=== PATIENT | female | born 1945 | race Caucasian/White ===

== ENCOUNTER 2017-03-27 02:52 | Outpatient (CLI) | payer MEDICARE, MEDICAID ==
[~2017-03-27 02:52] MED LIST: ASPI1CPM9 PO; AZIT250T PO; CLIN-80 PO; DET2LAC PO; LEVO50TA67 PO; NIFE60TA64 PO; ONDA4TAB6 PO; ONDA8TAB6 PO; PARO40TA45 PO; PREG100C24 PO; RANI300C7 PO; SIMV80TA2 PO
== END 2017-03-27 23:59 | disposition home or self-care (01) ==
LOC: DIABETIC 02:52
PROVIDERS: ATTEND Family Medicine
DX: E11.65 Type 2 diabetes mellitus with hyperglycemia (principal); F17.200 Nicotine dependence, unspecified, uncomplicated
CPT/HCPCS: G0108

== ENCOUNTER 2017-10-04 04:07 | Outpatient (CLI) | payer MEDICARE, MEDICAID ==
[~2017-10-04 04:07] MED LIST changes: -CLIN-80 PO; +CLIN300C85 PO
== END 2017-10-04 23:59 | disposition home or self-care (01) ==
LOC: DIABETIC 04:07
PROVIDERS: ATTEND Family Medicine
DX: E11.65 Type 2 diabetes mellitus with hyperglycemia (principal); Z79.899 Other long term (current) drug therapy
CPT/HCPCS: G0108

== ENCOUNTER 2018-01-09 00:57 | Outpatient (CLI) | payer MEDICARE, MEDICAID | END 2018-01-09 23:59 | disposition home or self-care (01) | LOC: DIABETIC 00:57 | PROVIDERS: ATTEND Family Medicine | DX: E11.65 Type 2 diabetes mellitus with hyperglycemia (principal) | CPT/HCPCS: G0108 ==

== ENCOUNTER 2018-07-10 04:24 | Outpatient (CLI) | payer MEDICARE, MEDICAID ==
[~2018-07-10 04:24] MED LIST changes: +CLIN-96 PO; -CLIN300C85 PO
== END 2018-07-10 23:59 | disposition home or self-care (01) ==
LOC: DIABETIC 04:24
PROVIDERS: ATTEND Family Medicine
DX: E11.65 Type 2 diabetes mellitus with hyperglycemia (principal); I50.9 Heart failure, unspecified; Z88.0 Allergy status to penicillin; Z88.2 Allergy status to sulfonamides; Z88.5 Allergy status to narcotic agent; Z91.041 Radiographic dye allergy status
CPT/HCPCS: G0108

== ENCOUNTER 2018-10-16 00:46 | Outpatient (CLI) | payer MEDICARE, MEDICAID | END 2018-10-16 23:59 | disposition home or self-care (01) | LOC: DIABETIC 00:46 | PROVIDERS: ATTEND Family Medicine | DX: E11.9 Type 2 diabetes mellitus without complications (principal); I50.9 Heart failure, unspecified; Z79.899 Other long term (current) drug therapy | CPT/HCPCS: G0108 ==

== ENCOUNTER 2019-01-16 03:13 | Outpatient (CLI) | payer MEDICARE, MEDICAID | END 2019-01-16 23:59 | disposition home or self-care (01) | LOC: DIABETIC 03:13 | PROVIDERS: ATTEND Family Medicine | DX: E11.9 Type 2 diabetes mellitus without complications (principal); I50.9 Heart failure, unspecified; Z79.899 Other long term (current) drug therapy | CPT/HCPCS: G0108 ==

== ENCOUNTER 2019-04-17 01:56 | Outpatient (CLI) | payer MEDICARE, MEDICAID ==
[~2019-04-17 01:56] MED LIST changes: +CLIN-90 PO; -CLIN-96 PO
== END 2019-04-17 23:59 | disposition home or self-care (01) ==
LOC: DIABETIC 01:56
PROVIDERS: ATTEND Family Medicine
DX: E11.9 Type 2 diabetes mellitus without complications (principal); Z79.84 Long term (current) use of oral hypoglycemic drugs
CPT/HCPCS: G0108

== ENCOUNTER 2020-04-11 19:06 | Emergency (ER) | payer BC, MEDICAID ==
[~2020-04-11] VITALS: Ht 154.9 cm; Wt 70.7 kg
[~2020-04-11 19:06] MED LIST changes: -CLIN-90 PO; +CLIN-97 PO
[2020-04-11] MEDS ORDERED: acetaminophen 325mg tablet PO ONE (19:25)
[2020-04-11 21:20] VITALS: BP 172/93
== END 2020-04-11 21:24 | disposition home or self-care (01) ==
LOC: ER 19:06
DX: I10 Essential (primary) hypertension (principal); G89.29 Other chronic pain; I48.91 Unspecified atrial fibrillation; K21.9 Gastro-esophageal reflux disease without esophagitis; G62.9 Polyneuropathy, unspecified; Z86.73 Personal history of transient ischemic attack (TIA), and cerebral infarction without residual deficits; Z90.89 Acquired absence of other organs; Z98.890 Other specified postprocedural states; Z88.0 Allergy status to penicillin; Z88.2 Allergy status to sulfonamides; Z88.5 Allergy status to narcotic agent; Z88.6 Allergy status to analgesic agent; Z79.82 Long term (current) use of aspirin; Z79.899 Other long term (current) drug therapy
CPT/HCPCS: 70450; 99284

== ENCOUNTER 2021-02-17 11:28 | Emergency (ER) | payer BC, MEDICAID ==
[~2021-02-17] VITALS: Ht 162.6 cm; Wt 55.0 kg
--- NOTE | 2021-02-17 12:18 | NUR ---
FOR CONTACT: [phone] [employer]
[2021-02-17] MEDS ORDERED: NAPR-56 PO (14:30)
[2021-02-17] MEDS ORDERED: METH-797 PO (14:30)
[2021-02-17 15:46] VITALS: BP 159/71
== END 2021-02-17 15:48 | disposition home or self-care (01) ==
LOC: ER 11:28
DX: S29.012A Strain of muscle and tendon of back wall of thorax, initial encounter (principal); S50.02XA Contusion of left elbow, initial encounter; M54.2 Cervicalgia; R53.1 Weakness; E11.42 Type 2 diabetes mellitus with diabetic polyneuropathy; I48.91 Unspecified atrial fibrillation; I50.9 Heart failure, unspecified; J45.909 Unspecified asthma, uncomplicated; K21.9 Gastro-esophageal reflux disease without esophagitis; G89.29 Other chronic pain; Z86.73 Personal history of transient ischemic attack (TIA), and cerebral infarction without residual deficits; Z90.89 Acquired absence of other organs; Z98.890 Other specified postprocedural states; Z60.2 Problems related to living alone; Z88.0 Allergy status to penicillin; Z88.5 Allergy status to narcotic agent; Z88.2 Allergy status to sulfonamides; Z88.8 Allergy status to other drugs, medicaments and biological substances; Z79.2 Long term (current) use of antibiotics; Z79.899 Other long term (current) drug therapy; W19.XXXA Unspecified fall, initial encounter; Y93.89 Activity, other specified; Y92.89 Other specified places as the place of occurrence of the external cause; Y99.8 Other external cause status
CPT/HCPCS: 70450; 72125; 99285

== ENCOUNTER 2021-04-04 12:38 | Emergency (ER) | payer BC, MEDICAID ==
[~2021-04-04] VITALS: Ht 154.9 cm; Wt 72.7 kg
[~2021-04-04 12:38] MED LIST changes: +METH-797 PO
[2021-04-04 13:39] LABS: BASOPHILS % (AUTO) 0.4 % (0-1); EOSINOPHILS # (AUTO) 0.1 X10'3 (0-0.9); EOSINOPHILS % (AUTO) 1.2 % (0-6); HEMATOCRIT 39.4 % (35.0-45.0); HEMOGLOBIN 13.7 g/dl (12.0-16.0); LYMPHOCYTES # (AUTO) 1.4 X10'3 (1.1-4.8); LYMPHOCYTES % (AUTO) 22.7 % (21-51); MEAN CORPUSCULAR HEMOGLOBIN 32.9 PG (27.0-31.0); MEAN CORPUSCULAR HGB CONC 34.7 g/dL (33.0-36.5); MEAN CORPUSCULAR VOLUME 94.8 FL (78-98); MONOCYTES # (AUTO) 0.6 X10'3 (0-0.9); MONOCYTES % (AUTO) 9.9 % (2-12); NEUTROPHILS # (AUTO) 4.2 X10'3 (1.8-7.7); NEUTROPHILS % (AUTO) 65.8 % (42-75); PLATELET COUNT 140 X10'3 (140-440); RED BLOOD COUNT 4.16 X10'6 (4.20-5.60); RED CELL DISTRIBUTION WIDTH 12.4 % (11.5-14.5); WHITE BLOOD COUNT 6.3 X10'3 (4.5-11.0)
[2021-04-04 13:51] LABS: APTT 24 SECONDS (22-32)
[2021-04-04 13:53] LABS: ALANINE AMINOTRANSFERASE 29 U/L (12-78); ALBUMIN 3.9 G/DL (3.4-5.0); ALBUMIN/GLOBULIN RATIO 1.1 (1.1-1.5); ALKALINE PHOSPHATASE 54 IU/L (46-116); ANION GAP 7 (8-16); ASPARTATE AMINO TRANSFERASE 20 U/L (10-37); BILIRUBIN,TOTAL 0.4 MG/DL (0.1-1.0); BLOOD UREA NITROGEN 26 MG/DL (7-18); CALCIUM 9.6 MG/DL (8.5-10.1); CHLORIDE 106 MMOL/L (99-107); CREATININE 1.37 MG/DL (0.40-0.90); GLUCOSE 111 MG/DL (70-104); POTASSIUM 3.8 MMOL/L (3.5-5.1); SODIUM 142 MMOL/L (135-145); TOTAL CARBON DIOXIDE 29.1 MMOL/L (24-32); TOTAL PROTEIN 7.3 G/DL (6.4-8.2); eGFR 38 ML/MIN
[2021-04-04 14:01] LABS: C-REACTIVE PROTEIN 0.22 MG/DL (0.0-0.5); CREATINE KINASE 96 U/L (26-192)
[2021-04-04] MEDS ORDERED: normal saline 1000ML IV soln IVB ONE (14:15)
[2021-04-04] MEDS ORDERED: ketorolac trometh. 30mg/ml inj. IV ONE (14:35)
--- NOTE | 2021-04-04 14:42 | NUR ---
CALLED SON HE DIDNT ANSWER TRIED TO LEAVE A MESSAGE BUT MAILBOX WAS FULL.
[2021-04-04 15:17] VITALS: BP 148/83
== END 2021-04-04 16:16 | disposition home or self-care (01) ==
LOC: ER 12:39
DX: S70.02XA Contusion of left hip, initial encounter (principal); Z20.822 Contact with and (suspected) exposure to COVID-19; E11.43 Type 2 diabetes mellitus with diabetic autonomic (poly)neuropathy; I48.91 Unspecified atrial fibrillation; I50.9 Heart failure, unspecified; J45.909 Unspecified asthma, uncomplicated; K21.9 Gastro-esophageal reflux disease without esophagitis; G89.29 Other chronic pain; Z86.73 Personal history of transient ischemic attack (TIA), and cerebral infarction without residual deficits; Z88.0 Allergy status to penicillin; Z88.2 Allergy status to sulfonamides; Z88.8 Allergy status to other drugs, medicaments and biological substances; Z91.041 Radiographic dye allergy status; Z79.82 Long term (current) use of aspirin; Z79.2 Long term (current) use of antibiotics; Z79.899 Other long term (current) drug therapy; X50.1XXA Overexertion from prolonged static or awkward postures, initial encounter; Y93.89 Activity, other specified; Y92.89 Other specified places as the place of occurrence of the external cause; Y99.8 Other external cause status
CPT/HCPCS: 71045; 73502; 80053; 82550; 83874; 84145; 84484; 85025; 85610; 85730; 86140; 86885; 86900; 86901; 87635; 93005; 96361; 96374; 99285; C9803; J1885; J7030

== ENCOUNTER 2022-05-27 18:16 | Emergency (ER) | payer BC, MEDICAID ==
[~2022-05-27] VITALS: Ht 154.9 cm; Wt 66.2 kg
[~2022-05-27 18:16] MED LIST changes: +AGGRENOX PO; +ALBU8HFA IH; +AMIT25TA9 PO; +ASCO500C17 PO; -ASPI1CPM9 PO; -AZIT250T PO; +BUDE10.2 IH; -CLIN-97 PO; -DET2LAC PO; +DEXA6TAB PO; +DULO30CA52 PO; +HYDR-3964 PO; +LEVO50TA PO; -LEVO50TA67 PO; +LOSA1TAB41 PO; +METF-436 PO; -METH-797 PO; +MONT-40 PO; +MULT-1074 PO; -NIFE60TA64 PO; -ONDA4TAB6 PO; -ONDA8TAB6 PO; +PANT40TA54 PO; -PARO40TA45 PO; -PREG100C24 PO; -RANI300C7 PO; -SIMV80TA2 PO; +SIMV80TA89 PO; +SITA100T11 PO; +TOLT4CAP28 PO
--- NOTE | 2022-05-27 19:22 | NUR ---
Patient wounds further evaluated. Patient has hematoma/abrasion to left forehead. This was irrigated with sterile irrigation. No active bleeding at this time. Patient has noted 4cm skin tear to left forearm. This was also irrigated, temp dressing placed (non-adherent).
--- NOTE | 2022-05-27 20:56 | NUR ---
Patient reports she is a little nauseated at this time. Provider aware, new order noted.
[2022-05-27] MEDS ORDERED: ondansetron/PF 4mg/2ml inj IV ONE (21:00)
[2022-05-27] MEDS ORDERED: TETanus/Pertussis (Acell)/Diphther VAC/PF (Tdap-Adult) 0.5ml syringe IMVAC ONE (21:50)
--- NOTE | 2022-05-27 21:53 | NUR ---
Patient gait test/ambulatory trial completed. Patient reports she normally uses a specialized cane at home d/t history of stroke and left arm disability. Patient was ambulatory trialed using hospital walker d/t no availability of specialized cane. patient tolerated this ambulatory trial well, patient gait steady with walker, ambulated 40ft with guard assist only for safety.
[2022-05-27 22:15] VITALS: BP 152/94
== END 2022-05-27 22:45 | disposition home or self-care (01) ==
LOC: ER 18:17
DX: S00.03XA Contusion of scalp, initial encounter (principal); S50.812A Abrasion of left forearm, initial encounter; I50.9 Heart failure, unspecified; J45.909 Unspecified asthma, uncomplicated; K21.9 Gastro-esophageal reflux disease without esophagitis; E11.9 Type 2 diabetes mellitus without complications; G89.29 Other chronic pain; M54.50 Low back pain, unspecified; Z88.0 Allergy status to penicillin; Z88.2 Allergy status to sulfonamides; Z88.5 Allergy status to narcotic agent; Z91.041 Radiographic dye allergy status; Z98.890 Other specified postprocedural states; W10.8XXA Fall (on) (from) other stairs and steps, initial encounter; Y93.89 Activity, other specified; Y92.89 Other specified places as the place of occurrence of the external cause; Y99.8 Other external cause status
CPT/HCPCS: 70450; 72125; 90471; 90715; 96374; 99285; J2405

== ENCOUNTER 2022-05-30 19:14 | Emergency (ER) | payer BC, MEDICAID ==
[~2022-05-30] VITALS: Ht 154.9 cm; Wt 68.2 kg
[2022-05-30 21:55] VITALS: BP 142/68
== END 2022-05-30 21:56 | disposition home or self-care (01) ==
LOC: ER 19:14
DX: S51.812A Laceration without foreign body of left forearm, initial encounter (principal); I50.9 Heart failure, unspecified; J45.909 Unspecified asthma, uncomplicated; K21.9 Gastro-esophageal reflux disease without esophagitis; E11.9 Type 2 diabetes mellitus without complications; G89.29 Other chronic pain; M54.50 Low back pain, unspecified; Z88.0 Allergy status to penicillin; Z88.2 Allergy status to sulfonamides; Z88.5 Allergy status to narcotic agent; Z91.041 Radiographic dye allergy status; W19.XXXA Unspecified fall, initial encounter; Y93.89 Activity, other specified; Y92.89 Other specified places as the place of occurrence of the external cause; Y99.8 Other external cause status
CPT/HCPCS: 82948; 99283

== ENCOUNTER 2022-07-04 15:11 | Emergency (ER) | payer BC, MEDICAID ==
[~2022-07-04] VITALS: Ht 152.4 cm; Wt 68.2 kg
[2022-07-04 19:48] VITALS: BP 186/94
== END 2022-07-04 18:59 | disposition home or self-care (01) ==
LOC: ER 15:12
DX: S50.02XA Contusion of left elbow, initial encounter (principal); I50.9 Heart failure, unspecified; J45.909 Unspecified asthma, uncomplicated; K21.9 Gastro-esophageal reflux disease without esophagitis; E11.9 Type 2 diabetes mellitus without complications; Z88.0 Allergy status to penicillin; Z88.2 Allergy status to sulfonamides; Z98.890 Other specified postprocedural states; W19.XXXA Unspecified fall, initial encounter; Y93.89 Activity, other specified; Y92.89 Other specified places as the place of occurrence of the external cause; Y99.8 Other external cause status
CPT/HCPCS: 73080; 99283

== ENCOUNTER 2023-09-23 19:08 | Emergency (ER) | payer BC, MEDICAID ==
[~2023-09-23] VITALS: Ht 154.9 cm; Wt 59.3 kg
[~2023-09-23 19:08] MED LIST changes: -BUDE10.2 IH; -DEXA6TAB PO; -METF-436 PO; -SITA100T11 PO
[2023-09-23 19:14] VITALS: BP 144/117; PULSE 82; RESP 18; O2SAT 96
[2023-09-23] MEDS: ondansetron 4mg rapidly disintigrating tab PO ONE (20:12)
[2023-09-23 22:46] VITALS: TEMP 98.5
== END 2023-09-23 22:53 | disposition home or self-care (01) ==
LOC: ER 19:08
DX: R11.10 Vomiting, unspecified (principal); I48.91 Unspecified atrial fibrillation; I50.9 Heart failure, unspecified; J45.909 Unspecified asthma, uncomplicated; K21.9 Gastro-esophageal reflux disease without esophagitis; E11.42 Type 2 diabetes mellitus with diabetic polyneuropathy; G89.29 Other chronic pain; M54.9 Dorsalgia, unspecified; Z98.890 Other specified postprocedural states; Z60.2 Problems related to living alone; Z88.0 Allergy status to penicillin; Z88.2 Allergy status to sulfonamides; Z86.73 Personal history of transient ischemic attack (TIA), and cerebral infarction without residual deficits; Z79.899 Other long term (current) drug therapy; W07.XXXA Fall from chair, initial encounter; Y93.89 Activity, other specified; Y92.89 Other specified places as the place of occurrence of the external cause; Y99.8 Other external cause status
CPT/HCPCS: 93005; 99283

== ENCOUNTER 2024-01-29 14:41 | Emergency (ER) | payer BC, MEDICAID ==
[~2024-01-29] VITALS: Ht 154.9 cm; Wt 60.0 kg
[2024-01-29] MEDS ORDERED: iohexol 350MG/ML 100ml bottle IV ONE (15:08)
[2024-01-29 15:18] LABS: BASOPHILS % (AUTO) 0.5 % (0-1); EOSINOPHILS # (AUTO) 0.2 X10'3 (0-0.9); EOSINOPHILS % (AUTO) 2.5 % (0-6); HEMATOCRIT 37.2 % (35.0-45.0); LYMPHOCYTES # (AUTO) 1.2 X10'3 (1.1-4.8); LYMPHOCYTES % (AUTO) 19.6 % (21-51); MEAN CORPUSCULAR HEMOGLOBIN 33.5 PG (27.0-31.0); MEAN CORPUSCULAR VOLUME 95.6 FL (78-98); MEAN PLATELET VOLUME 11.2 FL (7.4-10.4); MONOCYTES # (AUTO) 0.6 X10'3 (0-0.9); MONOCYTES % (AUTO) 9.9 % (2-12); NEUTROPHILS # (AUTO) 4.3 X10'3 (1.8-7.7); NEUTROPHILS % (AUTO) 67.5 % (42-75); PLATELET COUNT 125 X10'3 (140-440); RED BLOOD COUNT 3.89 X10'6 (4.20-5.60); RED CELL DISTRIBUTION WIDTH 12.5 % (11.5-14.5); WHITE BLOOD COUNT 6.3 X10'3 (4.5-11.0)
[2024-01-29 15:32] LABS: APTT 23 SECONDS (22-32); PROTHROMBIN TIME 10.5 SECONDS (9.0-12.0)
[2024-01-29 15:45] LABS: ALBUMIN 3.7 G/DL (3.4-5.0); ANION GAP 6 (8-16); BLOOD UREA NITROGEN 25 MG/DL (7-18); BUN/CREATININE RATIO 18.2 (10.0-20.0); CALCIUM 9.7 MG/DL (8.5-10.1); CHLORIDE 103 MMOL/L (99-107); CREATININE 1.37 MG/DL (0.40-0.90); GLUCOSE 158 MG/DL (70-104); POTASSIUM 3.2 MMOL/L (3.5-5.1); SODIUM 140 MMOL/L (135-145); TOTAL CARBON DIOXIDE 31.3 MMOL/L (24-32); eCRCL 26 ML/MIN; eGFR 37 ML/MIN
[2024-01-29 20:49] VITALS: BP 158/132; PULSE 61; RESP 14; TEMP 98; O2SAT 99
[2024-01-30] MEDS ORDERED: potassium bicarbonate/cit acid 25mEq tablet.effervescent PO SCH
== END 2024-01-29 20:50 | disposition home or self-care (01) ==
LOC: ER 14:42
DX: Z13.9 Encounter for screening, unspecified (principal); I49.8 Other specified cardiac arrhythmias; E11.42 Type 2 diabetes mellitus with diabetic polyneuropathy; I48.91 Unspecified atrial fibrillation; I50.9 Heart failure, unspecified; J45.909 Unspecified asthma, uncomplicated; K21.9 Gastro-esophageal reflux disease without esophagitis; G89.29 Other chronic pain; M54.9 Dorsalgia, unspecified; I69.354 Hemiplegia and hemiparesis following cerebral infarction affecting left non-dominant side; Z60.2 Problems related to living alone; Z98.890 Other specified postprocedural states; Z88.2 Allergy status to sulfonamides; Z88.0 Allergy status to penicillin; Z88.5 Allergy status to narcotic agent; Z88.8 Allergy status to other drugs, medicaments and biological substances; Z79.899 Other long term (current) drug therapy
CPT/HCPCS: 36415; 70450; 70496; 70498; 70551; 71045; 80048; 84484; 85025; 85610; 85730; 93005; 99285; Q9967

== ENCOUNTER 2024-04-29 08:18 | Emergency (ER) | payer BC, MEDICAID ==
[~2024-04-29] VITALS: Ht 154.9 cm; Wt 55.3 kg
[2024-04-29 10:20] LABS: BILIRUBIN,URINE NEGATIVE (Neg); CLARITY,URINE CLEAR (Clear); COLOR,URINE STRAW (Yellow); GLUCOSE, URINE NEGATIVE (Neg); KETONES,URINE NEGATIVE (Neg); LEUKOCYTE ESTERASE ,URINE TRACE (Neg); NITRITES, URINE NEGATIVE (Neg); OCCULT BLOOD,URINE NEGATIVE (Neg); PH,URINE 6.5 (4.8-8.0); PROTEIN,URINE TRACE mg/dl (Neg); UROBILINOGEN,URINE 0.2 E.U/dL (0.2-1.0)
[2024-04-29 10:22] LABS: UA COLLECTION TYPE NON-SPECIFIED
[2024-04-29 10:30] LABS: BACTERIA,URINE FEW /HPF (Neg); MUCUS STRANDS NONE SEEN /LPF (Neg); RBC,URINE NONE SEEN /HPF (0-2); SQUAMOUS EPITHELIAL CELL,UR FEW /LPF (FEW); WBC CLUMPS,URINE FEW /HPF (NEGATIVE)
[2024-04-29 12:21] VITALS: BP 168/92; PULSE 76; RESP 18; TEMP 98.6; O2SAT 98
== END 2024-04-29 13:26 | disposition home or self-care (01) ==
LOC: ER 08:18
DX: M25.552 Pain in left hip (principal); M25.551 Pain in right hip; E11.42 Type 2 diabetes mellitus with diabetic polyneuropathy; I48.91 Unspecified atrial fibrillation; I50.9 Heart failure, unspecified; J45.909 Unspecified asthma, uncomplicated; K21.9 Gastro-esophageal reflux disease without esophagitis; Z86.73 Personal history of transient ischemic attack (TIA), and cerebral infarction without residual deficits; Z88.0 Allergy status to penicillin; Z88.2 Allergy status to sulfonamides; Z88.5 Allergy status to narcotic agent; Z88.8 Allergy status to other drugs, medicaments and biological substances; Z90.89 Acquired absence of other organs; Z91.041 Radiographic dye allergy status; Z98.890 Other specified postprocedural states
CPT/HCPCS: 72100; 73502; 81001; 87088; 99284

== ENCOUNTER 2025-03-10 17:36 | Emergency (ER) | payer BC, MEDICAID ==
[~2025-03-10] VITALS: Ht 154.9 cm; Wt 56.8 kg
[~2025-03-10 17:36] MED LIST changes: +AMIT25TA22 PO; -AMIT25TA9 PO
--- NOTE | 2025-03-10 18:44 | RADIOLOGY REPORT ---
CLINICAL INDICATION: Elbow pain RIGHT TECHNIQUE: 3 radiographic views of the right elbow were obtained. COMPARISON: ELBOW, COMPLETE (3VW MIN) on DOS: 07/04/22 FINDINGS/IMPRESSION: There is no evidence of acute fracture or dislocation. Mild degenerative changes. The alignment is anatomical. There is no radiopaque foreign body. Mild posterior elbow soft tissue edema.
--- NOTE | 2025-03-10 18:45 | RADIOLOGY REPORT ---
CLINICAL HISTORY: Fall On Thinners W/Head Strike TECHNIQUE: CT exam of the cervical spine was performed without intravenous contrast. This exam was performed according to our departmental dose optimization program. Up-to-date CT equipment and radiation dose reduction techniques are utilized as appropriate. CTDI 23 DLP 594 COMPARISON: CT CERVICAL SPINE on DOS: 05/27/22 FINDINGS: The alignment of the cervical spine is normal. The vertebral body heights and intervertebral disc spaces are maintained. The prevertebral space is within normal limits. No acute fracture or dislocation is seen. There are multilevel degenerative changes with facet and uncovertebral hypertrophy. There is no high-grade central canal or neural foraminal narrowing by CT IMPRESSION: No acute fracture or dislocation.
--- NOTE | 2025-03-10 18:50 | Physician Documentation ---
History of Present Illness ~ Chief Complaint: Mechanical Fall Stated Complaint: FALL Time Seen by MD: 17:58 Primary Medical Doctor: Lalo GARCIA This is a 79-year-old female who presents by EMS after a mechanical ground level fall striking her buttocks, right elbow, and posterior head. Patient reports no loss of consciousness. Patient reports she is on blood thinners. Patient reports no other acute symptoms or concerns and no other injuries. Tetanus within 5 Years?: No Medication Reconciliation Allergies: Coded Allergies: Penicillins (Verified Allergy, Unknown, 04/29/24) Sulfa (Sulfonamide Antibiotics) (Verified Allergy, Unknown, 04/29/24) codeine (Verified Allergy, Unknown, 04/29/24) iodine (Verified Allergy, Unknown, 04/29/24) Scheduled Amitriptyline Hcl (Amitriptyline Hcl), 1 TAB PO HS, (Reported) Ascorbic Acid (Vitamin C), 1 CAP PO DAILY, (Reported) Duloxetine HCl (Duloxetine HCl), 1 CAP PO DAILY, (Reported) Levothyroxine Sodium (Synthroid), 1 TAB PO DAILY, (Reported) Losartan/Hydrochlorothiazide (Losartan-Hctz 100-12.5 Mg Tab), 1 TAB PO DAILY, (Reported) Montelukast Sodium (Montelukast Sodium), 1 TAB PO DAILY, (Reported) Multivitamin (Multi-Vitamin Daily), 1 TAB PO DAILY, (Reported) Pantoprazole Sodium (Pantoprazole Sodium), 1 TAB PO DAILY, (Reported) Simvastatin (Simvastatin), 1 TAB PO HS, (Reported) Tolterodine Tartrate (Tolterodine Tartrate ER), 1 CAP PO DAILY, (Reported) [Aggrenox 25/200 Mg], 1 TAB PO BID, (Reported) Scheduled PRN Hydrocodone Bit/Acetaminophen (Hydrocodon-Acetaminophen 5-325), 1 TAB PO Q6H PRN for pain, (Reported) albuterol inhaler (Pro-Air Inhaler), 2 PUFFS IH Q6H PRN for SOB or wheezing, (Reported) Past Medical History Past Medical History: CVA/TIA/Stroke, Peripheral Neuropathy, Atrial Fibrillation, Congestive Heart Failure, Asthma, GERD, Diabetes, Chronic Back Pain Past Surgical History: orthopedic surgeries, tonsillectomy Patient History: Patient reports no known family medical history. Alcohol Use: None Drug Use: none Lives with: Alone Lives In: Home Review of Systems ROS As stated above in the HPI, otherwise all systems are reviewed and negative. Physical Exam Vital Signs: Temperature: 98.1, Source: Oral, Heart Rate: 90, Respiratory Rate: 16, BP: 161/83, Pulse Oximetry: 97, Weight: 56.800 Oxygen Flow Rate: 0 Physical Exam VITALS: Reviewed and as above. GENERAL: Alert, nontoxic appearing, no apparent distress. HEENT: Hematoma to occipital scalp, no laceration. PERRLA, EOMI, no C-spine tenderness, no step-offs, no crepitus RESPIRATORY: No increased work of breathing, no respiratory distress, speaking in full clear sentences BACK: Nontender to palpation, no central spinal tenderness, no step-offs, no crepitus MUSCULOSKELETAL: Limbs nontender to palpation, no obvious deformities SKIN: Abrasion to right elbow, no evidence of retained foreign body NEURO: GCS 15, alert and oriented x4 Progress Results/Orders Results/Orders Orders - DAVID MCNALLY [employer] Ct Cervical Spine (03/10/25 18:10) Ct Head (03/10/25 18:10) Elbow, Complete (3vw Min) (03/10/25 18:32) Completed Orders - DAVID MCNALLY [employer] Ct Cervical Spine (03/10/25 18:10) Ct Head (03/10/25 18:10) Elbow, Complete (3vw Min) (03/10/25 18:32) Hydrocodone/Apap 10/325 ([place] 10/325mg (03/10/25 19:00) Vital Signs 03/10/25 03/10/25 03/10/25 03/10/25 17:48 18:50 18:59 20:04 Temp 98.1 98.1 Pulse 90 94 84 Resp 16 16 18 B/P (MAP) 161/83 169/105 (126) 175/81 Pulse Ox 97 97 O2 Flow Rate 0 0 EKG/XRAY/CT/US/VASC/MRI Bone/Soft Tissue X-Ray (Ext.) : Additional Comment Exam: ELBOW, COMPLETE (3VW MIN) CLINICAL INDICATION: Elbow pain RIGHT TECHNIQUE: 3 radiographic views of the right elbow were obtained. COMPARISON: ELBOW, COMPLETE (3VW MIN) on DOS: 07/04/22 FINDINGS/IMPRESSION: There is no evidence of acute fracture or dislocation. Mild degenerative changes. The alignment is anatomical. There is no radiopaque foreign body. Mild posterior elbow soft tissue edema. Electronically Signed by:JULISA ZAMAN DO Date & Time: 03/10/251841 Dictated by: JULISA ZAMAN DO Dictation date and time: 03/10/251841 I have reviewed and agree with the radiology report. I have reviewed and interpreted the imaging as: No fracture or dislocation CT #1: Impression Exam: CT HEAD CT CT HEAD INDICATION: Fall On Thinners W/Head Strike EXAM DATE: 03/10/2025 06:06 PM COMPARISON: MR MRI HEAD on DOS: 01/29/24, CT CT STROKE ALERT on DOS: 01/29/24, CT HEAD on DOS: 05/27/22, CT HEAD on DOS: 11/01/21, CT HEAD on DOS: 02/17/21 TECHNIQUE: CT of the head without intravenous contrast. RADIATION DOSE: CTDIvol: 55 mGy, DLP: 900 mGy*cm FINDINGS: There is no intracranial hemorrhage. Moderate to advanced periventricular and subcorticalm white matter chronic microvascular ischemic changes. Right frontal cystic appearing lesion measuring 1.2 cm with peripheral calcifications. Mild global cerebral volume loss. The ventricles are midline and normal in size. Basilar cisterns are patent. Zhang-white differentiation is maintained. The paranasal sinuses and mastoids are well-pneumatized. Imaged portion of the orbits are unremarkable. IMPRESSION: No intracranial hemorrhage or mass effect. Moderate to advanced chronic microvascular ischemic changes. Right frontal cystic lesion measuring 1.2 cm. This could represent encephalomalacia/cystic encephalomalacia however other lesions can not be entirely ruled out. Recommend MRI brain with and without contrast to anna e. Electronically Signed by:ETHAN MATTHEW MD Date & Time: 03/10/251848 Dictated by: ETHAN MATTHEW MD Dictation date and time: 03/10/251848 I have reviewed and agree with the radiology report. I have reviewed and interpreted the imaging as: No intracranial hemorrhage CT #2: Impression Exam: CT CERVICAL SPINE CLINICAL HISTORY: Fall On Thinners W/Head Strike TECHNIQUE: CT exam of the cervical spine was performed without intravenous contrast. This exam was performed according to our departmental dose optimization program. Up-to-date CT equipment and radiation dose reduction techniques are utilized as appropriate. CTDI 23 DLP 594 COMPARISON: CT CERVICAL SPINE on DOS: 05/27/22 FINDINGS: The alignment of the cervical spine is normal. The vertebral body heights and intervertebral disc spaces are maintained. The prevertebral space is within normal limits. No acute fracture or dislocation is seen. There are multilevel degenerative changes with facet and uncovertebral hypertrophy. There is no high-grade central canal or neural foraminal narrowing by CT IMPRESSION: No acute fracture or dislocation. Electronically Signed by:JACKIE PEREIRA MD Date & Time: 03/10/25 184 Dictated by: JACKIE PEREIRA MD Dictation date and time: 03/10/251809 I have reviewed and agree with the radiology report. I have reviewed and interpreted the imaging as: No vertebral fracture Medical Decision Making Additional information obtaine: other (EMS) Findings This 79-year-old female presented by EMS after a mechanical ground level fall striking her buttocks, right elbow, and posterior head, patient he is on blood thinners though reassuring patient reported no loss of consciousness. Physical exam demonstrated hematoma to occipital head and abrasion to right elbow otherwise no other injuries demonstrated, additionally reassuring that has no spinal tenderness. Due to fall on thinners CT of head and neck obtained demonstrating no intracranial hemorrhage or vertebral fractures. X-ray of right elbow obtained which did not demonstrate evidence of fracture or dislocation. Of note CT did demonstrate incidental findings which are likely related to patient's history of CVA, as findings are likely nonacute a are appropriate for outpatient follow up and this has been discussed with the patient and her family member who has been advised to follow up with the primary care provider. Patient is otherwise well-appearing hemodynamically stable and appropriate for outpatient follow up. Patient provided careful return to care precautions follow up instructions, return to care precautions. Differential Dx:Considerations: Include: Closed head injury, Cardiac injury, Fracture(s), Intraabdominal injury, Pneumothorax, Cerebral contusion, Spine injury, Tracheal injury, Urological injury, Vascular injury, Contusion(s), Foreign body(s), Hematoma(s), Laceration(s), Other (Fractures) Departure Time of Disposition: 19:45 Disposition: 01 HOME / SELF CARE / HOMELESS Impression: Primary Impression: Fall Qualified Codes: W19.XXXA - Unspecified fall, initial encounter Additional Impressions: Hematoma of occipital region of scalp Abrasion of right elbow Qualified Codes: S50.311A - Abrasion of right elbow, initial encounter Condition: Improved Discharge Instructions: Fall Prevention in the Home, Adult, [id number] Additional Instructions: Imaging and physical exam were reassuring. Please see the attached instructions to decrease your risk of falling again at home. Please follow up with your primary care provider in the next few days. Please return to the emergency department for any new or worsening concerning symptoms but not limited to new confusion or severe headache. There was some incidental findings on your CT scan, please follow up with your primary care provider promptly for further assessment as you may need an MRI. Referrals: NO PRIMARY CARE PROVIDER (PCP) Education Educated: Patient Educated regarding: diagnosis, treatment, prognosis, need for follow up Signature Scribe Signature: No scribe Attestation: The note accurately reflects work and decisions made by me.MAYITO Marley 03/11/25 13:07 DAVID MCNALLY Mar 10, 2025 18:50
[2025-03-10 18:59] VITALS: TEMP 98.1; O2SAT 97
[2025-03-10] MEDS: HYDROcodone/acetaminophen 10/325mg tab PO ONE (19:07)
[2025-03-10 20:04] VITALS: BP 175/81; PULSE 84; RESP 18
== END 2025-03-10 20:08 | disposition home or self-care (01) ==
LOC: ER 17:36
DX: S00.03XA Contusion of scalp, initial encounter (principal); S50.311A Abrasion of right elbow, initial encounter; E11.42 Type 2 diabetes mellitus with diabetic polyneuropathy; G89.29 Other chronic pain; I48.91 Unspecified atrial fibrillation; K21.9 Gastro-esophageal reflux disease without esophagitis; I50.9 Heart failure, unspecified; Z88.0 Allergy status to penicillin; Z88.2 Allergy status to sulfonamides; Z88.5 Allergy status to narcotic agent; Z88.8 Allergy status to other drugs, medicaments and biological substances; Z90.89 Acquired absence of other organs; Z86.73 Personal history of transient ischemic attack (TIA), and cerebral infarction without residual deficits; Z79.01 Long term (current) use of anticoagulants; Z79.899 Other long term (current) drug therapy; Z60.2 Problems related to living alone; W01.198A Fall on same level from slipping, tripping and stumbling with subsequent striking against other object, initial encounter; Y93.89 Activity, other specified; Y92.89 Other specified places as the place of occurrence of the external cause; Y99.8 Other external cause status
CPT/HCPCS: 70450; 72125; 73080; 99284